=== PATIENT | female | born 1935 | race Caucasian/White ===

== ENCOUNTER → 2016-12-19 | Outpatient (CLI) | payer MEDICARE, OTHER | LOC: COL.RAD 12:39 | DX: Z01.812 Encounter for preprocedural laboratory examination (principal); M67.441 Ganglion, right hand | CPT/HCPCS: A9585 ==

== ENCOUNTER → 2017-09-16 | Outpatient (REF) | LOC: ZLAB.WCH 16:43 | DX: Z01.89 Encounter for other specified special examinations (principal) ==

== ENCOUNTER → 2017-12-07 | Outpatient (CLI) | payer MEDICARE, OTHER | LOC: MHCPAIN 12:13 | DX: G89.29 Other chronic pain (principal); M47.817 Spondylosis without myelopathy or radiculopathy, lumbosacral region; M54.16 Radiculopathy, lumbar region; M53.3 Sacrococcygeal disorders, not elsewhere classified | CPT/HCPCS: G0463 ==

== ENCOUNTER → 2017-12-14 | Outpatient (CLI) | payer MEDICARE, OTHER | LOC: MHCPAIN 09:38 | DX: M47.817 Spondylosis without myelopathy or radiculopathy, lumbosacral region (principal); M54.16 Radiculopathy, lumbar region | CPT/HCPCS: J1100; Q9967 ==

== ENCOUNTER → 2017-12-28 | Outpatient (CLI) | payer MEDICARE, OTHER | LOC: MHCPAIN 10:33 | DX: G89.29 Other chronic pain (principal); M47.817 Spondylosis without myelopathy or radiculopathy, lumbosacral region; M54.16 Radiculopathy, lumbar region; M53.3 Sacrococcygeal disorders, not elsewhere classified | CPT/HCPCS: G0463 ==

== ENCOUNTER → 2017-12-31 | Outpatient (CLI) | payer MEDICARE, OTHER | LOC: MHCPAIN 14:30 | DX: M54.16 Radiculopathy, lumbar region (principal); M47.817 Spondylosis without myelopathy or radiculopathy, lumbosacral region | CPT/HCPCS: J1100; Q9967 ==

== ENCOUNTER → 2018-01-25 | Outpatient (CLI) | payer MEDICARE, OTHER | LOC: MHCPAIN 10:01 | DX: G89.29 Other chronic pain (principal); M47.817 Spondylosis without myelopathy or radiculopathy, lumbosacral region; M54.16 Radiculopathy, lumbar region; M53.3 Sacrococcygeal disorders, not elsewhere classified | CPT/HCPCS: G0463 ==

== ENCOUNTER → 2018-02-22 | Outpatient (CLI) | payer MEDICARE, OTHER ==
[2018-02-22 12:12] LABS: HIV 1/2 Antibodies Non-Reactive; HIV-1p24 Antigen Non-Reactive
== END ==
LOC: COL.LAB 10:51
PROVIDERS: Orthopaedic Surgery
DX: Z01.812 Encounter for preprocedural laboratory examination (principal); M17.12 Unilateral primary osteoarthritis, left knee

== ENCOUNTER → 2018-08-18 | Outpatient (REF) ==
[2018-08-18 18:36] LABS: THYROID STIMULATING HORMONE 0.912 uIU/mL (0.465-4.680)
== END ==
LOC: ZLAB.WCH 17:35
PROVIDERS: Family Medicine
DX: Z01.89 Encounter for other specified special examinations (principal)

== ENCOUNTER → 2018-09-22 | Outpatient (CLI) | payer MEDICARE, OTHER ==
[~2018-09-22] VITALS: Ht 162.6 cm; Wt 90.2 kg
[~2018-09-22] MED LIST: ASPIRIN E.C. 8181 MG PO; FISH OIL 500 M1 EAC1 PO; FLAXSEED OIL1000 MG PO; HCTZ 25MG TAB25 MG PO; MOTRIN 200200 MG/TAB PO; PRILOSEC 20MG20 MG PO
[2018-09-22 09:16] VITALS: BP 190/94; PULSE 62
[2018-09-22 10:46] VITALS: BP 150/70; PULSE 51
[2018-09-22 10:52] VITALS: BP 122/60; PULSE 71
[2018-09-22 10:53] VITALS: BP 132/64; PULSE 70
[2018-09-22 10:54] VITALS: BP 140/70; PULSE 68
== END ==
LOC: COL.CARD 09:05
DX: R07.9 Chest pain, unspecified (principal); R06.00 Dyspnea, unspecified
CPT/HCPCS: A9500; J2785

== ENCOUNTER 2018-10-19 08:25 | Day surgery (SDC) | payer MEDICARE, OTHER ==
[~2018-10-19] VITALS: Ht 162.7 cm; Wt 90.0 kg
[2018-10-19] VITALS (12 sets, daily range): BP systolic 122–185; BP diastolic 63–105; PULSE 49–65; TEMP 97.6–98.3
[2018-10-19 09:01] LABS: HEMATOCRIT 37.3 % (37.0-47.0); HEMOGLOBIN 12.2 g/dl (12.5-16.0); MEAN CELL VOLUME 87 fl (80.0-100.0); MEAN CORPUSCULAR HEMOGLOBIN 29 pg (27.0-31.0); MEAN CORPUSCULAR HGB CONC 33 g/dl (33.0-37.0); PLATELET COUNT 249 K/mm3 (130-400); RED BLOOD COUNT 4.28 M/mm3 (4.10-5.30); REDCELL DISTRIBUTION WIDTH-CV 14.2 % (11.5-14.5)
[2018-10-19 09:11] LABS: CALCIUM 9.5 mg/dL (8.4-10.2); CREATININE, serum 1.01 (0.52-1.25); POTASSIUM 3.8 mmol/L (3.4-5.0)
[2018-10-19 09:27] LABS: INR 0.9 (0.8-3.0); PROTHROMBIN TIME 10.6 SECONDS (9.7-12.8)
[2018-10-19] MEDS ORDERED: VITAMIN C500 MG PO (09:52)
--- NOTE | 2018-10-19 10:24 | NUR ---
PLEASE SEE MERGE FOR ALL MEDICATION ADMINISTRATION TIMES, SEDATION ASSESSMENT DATA FOR DURING AND POST PROCEDURE.
[2018-10-19] MEDS ORDERED: IMDUR 30MG30 MG/TAB PO (11:03)
[2018-10-19] MEDS ORDERED: TOPROL XL 25MG25 MG PO (11:03)
--- NOTE | 2018-10-19 11:10 | NUR ---
Pt returned to [facility] 12 per bed s/p heart cath. Pt resting well, daughters at bedside.
--- NOTE | 2018-10-19 15:15 | NUR ---
Pt has ambulated, voided and eva PO intake s n/v. PIV removed with catheter intact.
--- NOTE | 2018-10-19 15:35 | NUR ---
Pt discharged per w/c by nurse with daughter.
== END 2018-10-19 16:13 | disposition home or self-care (01) ==
LOC: COL.CAR 08:25
PROVIDERS: Internal Medicine Cardiovascular Disease
DX: I25.10 Atherosclerotic heart disease of native coronary artery without angina pectoris (principal); I08.1 Rheumatic disorders of both mitral and tricuspid valves; Z79.82 Long term (current) use of aspirin; Z79.899 Other long term (current) drug therapy; I10 Essential (primary) hypertension
CPT/HCPCS: J1644; J2250; J3010; Q9967